=== PATIENT | female | born 1970 | race Caucasian/White ===

== ENCOUNTER 2020-03-28 15:17 | Outpatient (CLI) | payer OTHER, SELFPAY ==
[2020-03-28 16:17] LABS: SARS-CoV-2 Ag Negative (Negative)
== END 2020-03-28 15:18 | disposition home or self-care (01) ==
PROVIDERS: PCP Family Medicine; Visit Provider Family Medicine
DX: J01.80 Other acute sinusitis (principal); Z20.828 Contact with and (suspected) exposure to other viral communicable diseases
CPT/HCPCS: 87426

== ENCOUNTER 2020-05-23 13:11 | Outpatient (CLI) | payer OTHER, SELFPAY ==
--- NOTE | ~2020-05-23 | MM_ITS ---
EXAMINATION: MM screening [facility] w renetta HISTORY: Screening TECHNIQUE: Craniocaudal and mediolateral oblique 3-D tomosynthesis images were obtained and synthetic 2-D images were generated. CAD analysis was submitted and interpreted. COMPARISON: Comparison to multiple prior studies sequentially, with oldest reviewed study dated 11/14. BREAST PARENCHYMAL COMPOSITION: The breasts are extremely dense, which lowers the sensitivity of mamm ography. FINDINGS: There are focal asymmetries in the right breast on CC view, middle third. There is no evide nce of suspicious mass, calcification, or architectural distortion to suggest malignancy in the left breast. IMPRESSION: 1. Focal asymmetries of the right breast on CC view only. 2. Additional mammographic views and possible breast ultrasound are recommended. BI-RADS Category 0: Incomplete: Needs additional imaging evaluation. Reviewed, dictated and finalized at location A. 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 Focal asymmetries of the right breast on CC view only. 2. Additional mammographic views and possible breast ultrasound are recommended . BI-RADS Category 0: Incomplete: Needs additional imaging evaluation.
== END 2020-05-23 13:12 | disposition home or self-care (01) ==
LOC: CHSIMG 13:14
PROVIDERS: PCP Family Medicine; Visit Provider Family Medicine
DX: Z12.31 Encounter for screening mammogram for malignant neoplasm of breast (principal)
CPT/HCPCS: 77063; 77067

== ENCOUNTER 2020-06-21 07:42 | Outpatient (CLI) | payer OTHER, SELFPAY ==
--- NOTE | ~2020-06-21 | MM_ITS ---
EXAMINATION: MM diagnostic mammo unilat RT HISTORY: Right breast asymmetries on screening mammogram TECHNIQUE: Additional images of the right breast were performed. CAD analysis was submitted and inter preted. COMPARISON: 05/23/2020, 01/25/2019, 06/08/2017 FINDINGS: No persistent asymmetry is identified with spot compression views of the right breast. Ther e is no suspicious mass, calcification, or architectural distortion. IMPRESSION: 1. No mammographic evidence of malignancy. 2. Recommend routine screening mammography in one year. BI-RADS Category 1: Negative Reviewed, dictated and finalized at location A. 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
== END 2020-06-21 07:43 ==
PROVIDERS: PCP Family Medicine; Visit Provider Advanced Practice Midwife
DX: R92.8 Other abnormal and inconclusive findings on diagnostic imaging of breast (principal)
CPT/HCPCS: 77065

== ENCOUNTER 2020-07-15 10:41 | Outpatient (CLI) | payer OTHER, SELFPAY ==
[2020-07-15 12:13] LABS: SARS-CoV-2 RNA PCR Negative
== END 2020-07-15 10:42 | disposition home or self-care (01) ==
LOC: CHSLAB 10:43
PROVIDERS: PCP Family Medicine; Visit Provider Family Medicine
DX: J06.9 Acute upper respiratory infection, unspecified (principal); Z20.822 Contact with and (suspected) exposure to COVID-19
CPT/HCPCS: C9803; U0003; U0005

== ENCOUNTER 2020-09-24 09:55 | Outpatient (CLI) | payer OTHER, SELFPAY ==
[2020-09-24 11:31] LABS: SARS-CoV-2 RNA PCR Negative (Negative)
== END 2020-09-24 09:56 | disposition home or self-care (01) ==
LOC: CHSLAB 09:58
PROVIDERS: PCP Family Medicine; Visit Provider Family Medicine
DX: J00 Acute nasopharyngitis [common cold] (principal); Z20.822 Contact with and (suspected) exposure to COVID-19
CPT/HCPCS: C9803; U0003; U0005

== ENCOUNTER 2021-04-25 11:28 | Outpatient (CLI) | payer BC, SELFPAY ==
[2021-04-25 13:03] LABS: SARS-CoV-2 Ag Negative (Negative)
== END 2021-04-25 11:29 | disposition home or self-care (01) ==
LOC: CHSLAB 11:31
PROVIDERS: PCP Family Medicine; Visit Provider Family Medicine
DX: Z20.822 Contact with and (suspected) exposure to COVID-19 (principal)
CPT/HCPCS: 87426; C9803

== ENCOUNTER 2021-05-15 09:35 | Outpatient (CLI) | payer BC, SELFPAY ==
[2021-05-16 21:55] LABS: SARS-CoV-2 RNA PCR Positive
== END 2021-05-15 09:36 | disposition home or self-care (01) ==
LOC: CHSLAB 09:38
PROVIDERS: PCP Family Medicine; Visit Provider Family Medicine
DX: U07.1 COVID-19 (principal); J01.90 Acute sinusitis, unspecified
CPT/HCPCS: C9803; U0003; U0005

== ENCOUNTER 2021-09-10 14:32 | Outpatient (CLI) | payer BC, SELFPAY ==
--- NOTE | ~2021-09-10 | MM_ITS ---
EXAMINATION: MM screening [facility] BI w renetta HISTORY: Screening mammogram TECHNIQUE: Craniocaudal and mediolateral oblique 3-D tomosynthesis images were obtained and synthetic 2-D images were generated. CAD analysis was submitted and interpreted. COMPARISON: 06/21/2020, 05/23/2020, 01/25/2019, 06/08/2017 BREAST PARENCHYMAL COMPOSITION: The breasts are heterogeneously dense, which may obscure small masses . FINDINGS: There is no suspicious mass, calcification, or architectural distortion to suggest malignan cy in either breast. There has been no suspicious interval change. IMPRESSION: 1. No mammographic evidence of malignancy. 2. Recommend routine screening mammography in one year. BI-RADS Category 1: Negative Reviewed, dictated and finalized at location A.
== END 2021-09-10 14:33 | disposition home or self-care (01) ==
LOC: CHSIMG 14:34
PROVIDERS: PCP Family Medicine; Visit Provider Family Medicine
DX: Z12.31 Encounter for screening mammogram for malignant neoplasm of breast (principal)
CPT/HCPCS: 77063; 77067

== ENCOUNTER 2022-09-18 14:32 | Outpatient (CLI) | payer BC, SELFPAY ==
--- NOTE | ~2022-09-18 | MM_ITS ---
EXAMINATION: MM screening [facility] w renetta HISTORY: Screening mammogram TECHNIQUE: Craniocaudal and mediolateral oblique 3-D tomosynthesis images were obtained and synthetic 2-D images were generated. CAD analysis was submitted and interpreted. COMPARISON: 09/10/2021, 05/15/2020, 01/25/2019, 06/08/2017 BREAST PARENCHYMAL COMPOSITION:The breasts are extremely dense, which lowers the sensitivity of mammo graphy. FINDINGS: No suspicious mass, calcification, or architectural distortion are identified in either lani ast to suggest malignancy. There has been no suspicious interval change. IMPRESSION: No mammographic evidence of malignancy. Recommend routine screening mammography in one year. BI-RADS Category 1: Negative Reviewed, dictated and finalized at location .
== END 2022-09-18 14:33 | disposition home or self-care (01) ==
LOC: CHSIMG 14:34
PROVIDERS: PCP Family Medicine; Visit Provider Family Medicine
DX: Z12.31 Encounter for screening mammogram for malignant neoplasm of breast (principal)
CPT/HCPCS: 77063; 77067

== ENCOUNTER 2023-04-14 16:37 | Outpatient (CLI) | payer BC, SELFPAY ==
--- NOTE | ~2023-04-14 | XR_ITS ---
EXAMINATION: [id number] DATE: 04/14/2023 17:02 INDICATION: Neck pain. TECHNIQUE: 3 views of cervical spine were obtained. COMPARISON: None. FINDINGS: There is mild kyphosis of cervical spine. Vertebral body heights are normal. There is mildl y decreased disc height at C4-C5 and C5-C6. There is severe facet joint osteoarthritis at C7-T1. Ther e is mild central canal stenosis at C4-C5 and C5-C6. No prevertebral soft tissue swelling. IMPRESSION: 1. Mild cervical spondylosis. Reviewed, dictated and finalized at location E. 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
== END 2023-04-14 16:38 | disposition home or self-care (01) ==
LOC: CHSIMG 16:40
PROVIDERS: PCP Family Medicine; Visit Provider Family Medicine
DX: M54.2 Cervicalgia (principal); M43.02 Spondylolysis, cervical region
CPT/HCPCS: 72040

== ENCOUNTER 2023-05-31 13:14 | Outpatient (CLI) | payer BC, SELFPAY ==
--- NOTE | ~2023-05-31 | MR_ITS ---
EXAMINATION: MR cervical spine wo con DATE: 05/31/2023 13:48 INDICATION: Neck pain. TECHNIQUE: Magnetic resonance imaging (MRI) of the cervical spine was performed without intravenous c ontrast. COMPARISON: Cervical spine radiographs 04/14/2023 FINDINGS: There is mild cervical kyphosis. Vertebral body heights are normal. There is mildly decreas ed disc height at C4-C5 and C5-C6. The spinal cord signal intensity is normal. The following disc lev els are specifically discussed: C2-C3: The disc does not extend beyond the endplate margin. There is no uncovertebral joint osteoarth ritis. There is mild bilateral facet joint osteoarthritis. There is no neural foraminal stenosis. The re is no central canal stenosis. C3-C4: The disc does not extend beyond the endplate margin. There is no uncovertebral joint osteoarth ritis. There is mild right facet joint osteoarthritis. There is no neural foraminal stenosis. There i s no central canal stenosis. C4-C5: The disc is bulging. There is mild bilateral uncovertebral joint osteoarthritis. There is mild bilateral facet joint osteoarthritis. There is no neural foraminal stenosis. There is mild central c anal stenosis with ventral indentation of the spinal cord. C5-C6: The disc is bulging. There is mild bilateral uncovertebral joint osteoarthritis. There is mild bilateral facet joint osteoarthritis. There is no neural foraminal stenosis. There is mild central c anal stenosis with ventral indentation of the spinal cord. C6-C7: There is a central protrusion. There is mild bilateral uncovertebral joint osteoarthritis. The re is mild bilateral facet joint osteoarthritis. There is no neural foraminal stenosis. There is no c entral canal stenosis. C7-T1: The disc does not extend beyond the endplate margin. There is no uncovertebral joint osteoarth ritis. There is severe bilateral facet joint osteoarthritis. There is mild bilateral neural foraminal stenosis. There is no central canal stenosis. IMPRESSION: 1. Mild cervical spondylosis. Reviewed, dictated and finalized at location A. 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
== END 2023-05-31 13:15 ==
PROVIDERS: Visit Provider Family Medicine
DX: M47.892 Other spondylosis, cervical region (principal)
CPT/HCPCS: 72141

== ENCOUNTER 2023-12-31 13:16 | Outpatient (CLI) | payer BC, SELFPAY ==
--- NOTE | ~2023-12-31 | MM_ITS ---
EXAMINATION: MM screening [facility] w renetta HISTORY: Screening TECHNIQUE: Craniocaudal and mediolateral oblique 3-D tomosynthesis images were obtained and synthetic 2-D images were generated. CAD analysis was submitted and interpreted. COMPARISON: Comparison to multiple prior studies sequentially, with oldest reviewed study dated 05/2018. BREAST PARENCHYMAL COMPOSITION: Dense: The breasts are heterogeneously dense, which may obscure small masses FINDINGS: There is no evidence of suspicious mass, calcification, or architectural distortion to sugg est malignancy in either breast. There has been no suspicious interval change. IMPRESSION: 1. No mammographic evidence of malignancy. 2. Recommend routine screening mammography in one year. BI-RADS Category 1: Negative Reviewed, dictated and finalized at location B.
== END 2023-12-31 13:17 | disposition home or self-care (01) ==
LOC: CHSIMG 13:19
PROVIDERS: PCP Family Medicine; Visit Provider Family Medicine
DX: Z12.31 Encounter for screening mammogram for malignant neoplasm of breast (principal)
CPT/HCPCS: 77063; 77067

== ENCOUNTER 2024-10-04 08:35 | Outpatient (CLI) | payer BC, SELFPAY ==
--- NOTE | ~2024-10-04 | US_ITS ---
EXAMINATION: US retroperitoneal duplex ltd DATE: 10/05/2024 07:48 CDT INDICATION: Accelerated hypertension. TECHNIQUE: Sonographic imaging of the kidneys was performed with a 3.5 MHz transducer. Retroperitone al duplex sonogram of the renal arteries also obtained. FINDINGS: No focal flow abnormalities are seen in the renal arteries on color Doppler. The peak syst olic velocity ranges of the right and left renal arteries and aorta are 98 cm per second, 225 cm per second, and 185 cm per second, respectively. The velocities and renal to aortic ratios are abnormal m easuring 2.3 on the right and 2.0 on the left. IMPRESSION: 1. Abnormal renal arterial systolic velocities and renal artery/aortic systolic velocity ratios, con sistent with bilateral renal artery stenosis. Reviewed, dictated and finalized at location [] IMPRESSION: 1. Abnormal renal arterial systolic velocities and renal artery/aortic systoli c velocity ratios, consistent with bilateral renal artery stenosis.
--- OUTSIDE RECORDS SUMMARY | 2024-10-04 08:56 | XMS_ITS | Clinical Summary ---
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 Name Role Phone Unavailable Primary Care Provider Unavailabl e Active Problems No known active problems Social History Tobacco Use Types Packs/Day Years Used Date Smoking Tobacco: Never Assessed Comments Unknown Sex and Gender Information Value Date Recorded Sex Assigned at Not on file Legal Sex Female 4:11 PM [employer] Gender Identity Not on file Sexual Orientation Not on file Plan of Treatment Health Maintenance Due Date Last Done Comments DTAP/TDAP/TD VACCINES (1 - Tdap) 1988 HEPATITIS B VACCINES (1 of 3 - 19+ 3-dose series) 11/25 HPV/Cotest (21-29) 1990 CERVICAL CANCER SCREENING 12/22/1999 HPV/Cotest (30-65) 12/22/1999 PAP SMEAR 12/22/1999 COLORECTAL SCREENING 2014 Colorectal Cancer Screening 2014 FIT-DNA Q 3 years 2014 FIT/FOBT Q 1 year 2014 Flex Sig/CT Colonography Q 5 years 2014 BREAST CANCER SCREENING 10/07/2016 10/08/2015 ZOSTER VACCINE (1 of 2) 12/22/2019 INFLUENZA VACCINE (#1) 2023 Procedures Procedure Name Priority Date/Time Associated Diagnosis Comments MAMMO SCREEN BILAT W OR WO CAD Routine 10/08/2015 from Last 3 Months or Most Recently Relevant to Health Maintenance Results * MAMMO DIGITAL SCREEN BILAT (10/08/2015) Anatomical Region Laterality Modality Breast Bilateral Other us Abstract Provider MAMMO ORDERABLES Edited Result - Final from Last 3 Months or Most Recently Relevant to Health Maintenance
--- OUTSIDE RECORDS SUMMARY | 2024-10-04 08:56 | XMS_ITS | Data Portability ---
Author Organization [facility], [place] Address [address] [place] [address] Care Team Providers Care Car Knocker Name Role Phone KAREEM JEREZ Primary Care Provider Assessment Encounter Date Assessment Date Assessment LastModified by Organization Details LastModified Time 06/04/2021 06/04/2021 Annual gynecological exam performed. Patient will come back in a year unless there are new symptoms. Suggest Calcium with Vitamin D if not eating in diet. Patient advised to get annual flu shot. Recommend yearly physicals and preform monthly breast exams. Genetic testing is available for patients with family history of cancer. Engage in safe sexual practices, use condoms. Encouraged to have daily exercise. Avoid tobacco and illicit drugs, moderation of alcohol. If BMI greater than 25 dietary consult advised. If you have any questions please call or email. has mammogram scheudled for june 2021 refer for colonoscopy monitor bp plan mirena removal in 2023 [email or web address] Not available 06/04/2021 18:07:56 03/03/2023 03/03/2023 Annual gynecological exam performed. Patient will come back in a year unless there are new symptoms. [email or web address] Not available 03/03/2023 17:19:54 06/26/2024 06/26/2024 Annual gynecological exam performed. Patient will come back in a year unless there are new symptoms. Not available 06/26/2024 16:26:34 Plan of Treatment Reminders Order Date Submit Date Provider Last Modified By Organization Details Last Modified Time Details Appointments None recorded . Lab CBC w/ auto diff 2022 023 [facility], [address], [place], [address], 3 10:42:07 estradio l, serum 2022 023 [facility], [address], [place], [address], 3 16:46:35 TSH, serum or plasma 2022 023 [facility], [address], [place], [address], 3 16:46:35 lh + FSH, serum 2022 023 [facility], [address], [place], [address], 3 16:46:35 prolacti n, serum 2022 023 [facility], [address], [place], [address], 3 16:46:35 Referral None recorded . Procedures None recorded . Surgeries None recorded . Imaging US, pelvis 2022 023 [address], [address], [place], [address], 3 22:53:11 US, transvag inal [address], [address], [address], [place], [address], 3 22:53:11 US, pelvis, complete 2022 023 [facility] (Imaging), [address] [place], [address], 3 14:51:46 Medication Orders None recorded . Patient TargetsNo targets recorded. Patient InstructionsNo instructions recorded. Reason for Referral None Reported. Results Created Date Observation Date Name Description Value Unit Range Abnormal Flag Note LastModifiedBy Organization Detail LastModifiedTime 06/04/19 22 06/04/2021 IMAGE GUIDE D PAP AND HPV REGAR DLESS image guided Pap, HPV regardless of Pap result SEE RESULT S BELOW CASE REPOR T: Cytol ogy Gynec ologi louis Repor t Case: [id number] Autho sofia robe Provi kashif: Aura Lee, ESTER Saucedo cted: 06/04 1822 Order ing Locat ion: [place] [facility] Recei bekah: 06/05 0132 First Scree n: Abelino Echols, CT Speci men: Pat cooney Pap - Image d, Cervi x STATE MENT OF ADEQU ACY: Satis facto ry for evalu ation Trans forma tion zone compo nent prese nt FINAL DIAGN OSIS: Negat bryce for Intra epith elial Linda mixon or Dora costa (NIL) . Elect andry vila leobardo d by Abelino Echols, CT on 2021 at 2:59 PM ----- ----- ----- ----- ----- ----- ----- ----- ----- ----- ----- ----- ----- ----- ----- ----- ----- ---- HPV RESUL TS: HPV mRNA E6/E7 : No HPV mRNA Detec daphne NOTE: This high risk HPV mRNA assay detec ts fourt een high- risk HPV types (16, 18, 31, 33, 35, 39, 45, 51, 52, 56, 58, 59, 66, 68) witho ut diffe renti ation . COMME NT: Note: This speci men was revie wed by a Cytot echno logis t and/o r Patho logis t (as indic ated in this repor t) after evalu ation using the Thinp rep Imagi ng Syste m. [facility]: Menst rual Statu s: LMP (if appli cable ): Clini louis Histo ry/Pr eviou s Pap: Type of Neopl katina (if appli cable ): Signi fican t Clini louis Findi ngs: Other Histo ry: Hormo simon (if appli cable ): PAP EDUCA MAC L NOTE: The Pap Test is a scree ivet test with an inher ent false negat bryce rate. Liqui d-bas ed sampl ing may decre ase, but will not elimi kb, false negat bryce resul ts. A negat bryce resul t does not precl ude the prese nce and/o r devel opmen t of disea se, since the prese nce of abnor mal cells in the sampl e depen ds on the locat ion of the lesio n and sampl ing techn ique. Yossi nued regul ar scree ivet is the best metho d of cance r preve ntion . If repor daphne cytol ogic findi ng do not corre late with physi louis and/o r histo rical findi ngs, furth er inves tigat ion is recom niels d, as clini natalya warra nted. Not Available [facility] (Lab) [address], [place], [address], 06/10/2021 16:02:28 09/03/19 23 09/02/2022 CT/GC AND TRICH OMONA S VAGIN JONATAN (RRNA ), SWAB CT/GC and trichomonas vaginalis (rrna), swab CANCEL LED Wrong Test Order ed Not Available [facility] (Lab) [address], [place], [address], 09/03/2022 08:13:53 09/03/19 23 09/02/2022 CT/GC AND TRICH OMONA S VAGIN JONATAN (RRNA ), URINE chlamydia trachomatis, PCR Negati ve negati ve Not Available [facility] (Lab) [address] [facility], [place], [address], 09/03/2022 13:59:09 09/03/19 23 09/02/2022 CT/GC AND TRICH OMONA S VAGIN JONATAN (RRNA ), URINE neisseria gonorrhoeae, PCR Negati ve negati ve Not Available [facility] (Lab) [address] [place], [address], 09/03/2022 13:59:09 09/03/19 23 09/02/2022 CT/GC AND TRICH OMONA S VAGIN JONATAN (RRNA ), URINE trichomonas vaginalis ribosomal RNA (rrna) Negati ve negati ve Not Available [facility] (Lab) [address] [facility], [place], [address], 09/03/2022 13:59:09 06/27/19 25 06/26/2024 IMAGE GUIDE D PAP AND HPV REGAR DLESS image guided Pap, HPV regardless of Pap result SEE RESULT S BELOW CASE REPOR T: Cytol ogy Gynec ologi louis Repor t Case: [id number] Autho sofia nagel Provi kashif: Ubaldo Salas MD Colle cted: 06/26 1625 Order ing Locat ion: [place] [facility] Recei bekah: 06/27 0707 First Pat n: Linden Jay am, CT Speci men: Chelseyedna cooney Pap - Image d, Cervi x STATE MENT OF ADEQU ACY: Satis facto ry for evalu ation Trans forma tion zone compo nent prese nt ----- ----- ----- ----- ----- ----- ----- ----- ----- ----- ----- ----- ----- ----- ----- ----- ----- ---- FINAL DIAGN OSIS: Negat bryce for Intra epith elial Linda mixon or Dora costa (NIL) . Elect andry booth d by GM Trinh am on 025 at 0836 RECORD LABEL INTERN ----- ----- ----- ----- ----- ----- ----- ----- ----- ----- ----- ----- ----- ----- ----- ----- ----- ---- HPV RESUL TS: HPV mRNA E6/E7 : No HPV mRNA Detec daphne NOTE: This high risk HPV mRNA assay detec ts fourt een high- risk HPV types (16, 18, 31, 33, 35, 39, 45, 51, 52, 56, 58, 59, 66, 68) witho ut diffe renti ation . COMME NT: This speci men was revie wed by a Cytot echno logis t and/o r Patho logis t (as indic ated in this repor t) after evalu ation using the Thinp rep Imagi ng Syste m. [facility]: Menst rual Statu s: LMP (if appli cable ): Clini louis Histo ry/Pr eviou s Pap: Type of Neopl katina (if appli cable ): Signi fican t Clini louis Findi ngs: Other Histo ry: Hormo simon (if appli cable ): PAP EDUCA MAC L NOTE: The Pap Test is a scree ivet test with an inher ent false negat bryce rate. Liqui d-bas ed sampl ing may decre ase, but will not elimi kb, false negat bryce resul ts. A negat bryce resul t does not precl ude the prese nce and/o r devel opmen t of disea se, since the prese nce of abnor mal cells in the sampl e depen ds on the locat ion of the lesio n and sampl ing techn ique. Yossi nued regul ar scree ivet is the best metho d of cance r preve ntion . If repor daphne cytol ogic findi ng do not corre late with physi louis and/o r histo rical findi ngs, furth er inves tigat ion is recom niels d, as clini natalya dickens nted. Not Available [facility] (Lab) [address], [place], [address], 06/29/2024 09:41:54 09/17/19 23 09/16/2022 US, pelvi s No observ ation record ed. [facility] [address], [place], [address], 09/16/2022 18:28:36 09/17/19 23 09/16/2022 US, trans vagin al No observ ation record ed. [facility] [address], [place], [address], 09/16/2022 18:28:49 09/17/19 23 09/16/2022 US, pelvi s No observ ation record ed. [email or web address], [place], [address], 09/24/2022 12:20:03 Result Notes None recorded. Problems Name Problem SNOMED Code Status Onset Date Resolution Date Notes Provider Name and Address Organization Details Recorded Time Screenin g for malignan t neoplasm of cervix Completed 201106/04/2021 Screenin g for malignan t neoplasm s of the cervix;R ecorded Elsewher e: No Locat ion: [facility] S ource: [employer] baltazar: N Aditya ce ID: [id number] Nawaf lable Time: 10:00:00 AM Brenda Domingo [facility] 2 16:29:28 Screenin g for malignan t neoplasm of rectum Completed 201806/04/2021 Encounte r for screenin g for malignan t neoplasm of rectum;R ecorded Elsewher e: No Locat ion: [facility] S ource: [employer] baltazar: N Practi ce ID: 0001 Nawaf lable Time: 01:30:00 PM Brenda reyes [facility] 2 16:29:30 Migraine [id number] Completed 201706/04/2021 Migraine ;Recorde d Elsewher e: No Locat ion: [facility] S ource: [facility] baltazar: N Carlosti ce ID: 0001 Nawaf lable Time: 03:15:00 PM Brenda Sentz eric, [facility] [address] 16:29:[address] Concept Completed 201506/04/2021 Encntr for general adult medical exam w/o abnormal findings ;Recorde d Elsewher e: No Locat ion: [facility] S ource: [facility] baltazar: N Carlosti ce ID: 0001 Nawaf lable Time: 02:30:00 PM Brenda Domingo [facility], [facility] 2 16:29:34 Speciali zed medical examinat ion Completed 201106/04/2021 Gynecolo gical Examinat ion;Andi rded Elsewher e: No Locat ion: [facility] S ource: [facility] baltazar: N Carlosti ce ID: 0001 Nawaf lable Time: 10:00:00 AM Brenda Domingo eric, [facility] 2 16:29:37 Removal of intraute rine device Completed 201606/04/2021 Encounte r for removal of intraute rine contrace ptive device;R ecorded Elsewher e: No Locat ion: [facility] S ource: [facility] baltazar: N Carlosti ce ID: 0001 Nawaf lable Time: 10:45:00 AM Brenda Sentz eric, [facility] 2 16:29:26 Pregnanc y test negative [id number] Completed 201606/04/2021 Encounte r for pregnanc y test, result negative ;Recorde d Elsewher e: No Locat ion: [facility]: N Carlosti ce ID: 0001 Nawaf lable Time: 09:15:00 AM Brenda Domingo [facility] [address] 16:29:[address] Concept Completed 201506/04/2021 Encntr for metal neutralizer exam (general ) (routine ) w/o abn findings ;Recorde d Elsewher e: No Locat ion: [facility] S ource: [employer] baltazar: N Aditya ce ID: 0001 Nawaf lable Time: 02:30:00 PM Brenda Domingo [facility] 2 16:29:36 Clinical finding Completed 201606/04/2021 Presence of (intraut erine) contrace ptive device;R ecorded Elsewher e: No Locat ion: [facility] S ource: [employer] [employer] baltazar: N Carlosfarhad ce ID: 0001 Nawaf lable Time: 09:15:00 AM Brenda Domingo [facility] 2 16:29:14 Insertio n of intraute rine contrace ptive device Completed 201606/04/2021 Encounte r for insertio n of intraute rine contrace ptive device;R ecorded Elsewher e: No Locat ion: [facility] S ource: [facility] [employer] baltazar: N Carlosfarhad ce ID: 0001 Nawaf lable Time: 09:15:00 AM Brenda Domingo [facility] 2 16:29:21 Disorder of breast [id number] Completed 201506/04/2021 Disorder of breast, unspecif ied;Andi rded Elsewher e: No Locat ion: [facility] S ource: [employer] [employer] baltazar: N Carlosfarhad ce ID: 0001 Nawaf lable Time: 02:30:00 PM Brenda Domingo [facility] 2 16:29:19 Body mass index 30+ - obesity [id number] Completed 201806/04/2021 Body mass index (BMI) 30.0-30. 9, adult;Re corded Elsewher e: No Locat ion: [facility] S ource: [employer] baltazar: N Practi ce ID: 0001 Nawaf lable Time: 01:30:00 PM Brenda Domingo [facility] 2 16:29:12 Contrace ptive sheath status [id number] Completed 201606/04/2021 IUD follow up;Recor ded Elsewher e: No Locat ion: [facility] S ource: [employer] [employer] baltazar: N Practi ce ID: 0001 Nawaf lable Time: 03:00:00 PM Brenda Domingo [facility] 2 16:29:17 Sinusiti s [id number] Completed 201806/04/2021 Sinusiti s;Record ed Elsewher e: No Locat ion: [facility] S ource: [employer] [employer] baltazar: N Practi ce ID: 0001 Nawaf lable Time: 01:30:00 PM Brenda Domingo [facility] 2 16:29:32 Problem Notes None recorded. Procedures Surgical History Date Name Laterality Status Provider Name and Address Organization Details Recorded Time 10/14/19 23 Date of Last Colonoscopy completed [facility] 09/28/2024 12:21:25 08/20/19 23 completed [facility] 09/28/2024 12:21:45 06/04/19 22 Date of Last Pap Smear completed Brenda Domingo [facility] 06/04/2021 16:35:10 06/21/19 21 Date of Last Mammogram completed [facility] 09/28/2024 12:21:45 Imaging Results None recorded. Procedure Notes None recorded. Medical Equipment None Reported. Allergies Allergen ID Allergen Name Allergen Category Reaction Reaction Severity Criticality Documentation Date Start Date Code Code System Note Provider Name and Address Organization Details Recorded Time 88478 Levaquin medicatio n Not available Not available Not available 09/28/2024 48531 2 RxNorm SY Giraldo null, [facility] 5 12:21:45 606 levofloxa jersey medicatio n Not available Not available Not available 09/08/2019 33283 RxNorm Brenda Domingo [facility], [facility] 0 12:09:55 607 Product containin g penicilli n (product) medicatio n Not available Not available Not available 09/08/2019 00699 8001 SNOMED Brenda Domingo [facility], [facility] 0 12:10:06 Medications Name Sig Start Date Stop Date Status Note LastModified by Organization Details LastModified Time losartan 50 mg tablet Take 1 tablet every day by oral route. active Not Available Not Available No t Available Mirena 21 mcg/24 hr (up to 8 years) 52 mg intrauter ine device Take by intraute rine route. active mirena IUD inserted 7 Not Available Not Available Not Available nystatin 100,000 unit/mL oral suspensio n SHAKE LIQUID AND TAKE 5 ML BY MOUTH FOUR TIMES DAILY active Not Available Not Available No t Available prednison e 10 mg tablet 06/04 completed Not Available Not Available Not Available divalproe x 250 mg tablet,de layed release 06/04 completed Not Available Not Available Not Available azithromy jersey 250 mg tablet TK 2 TS PO ON DAY 1, THEN TK 1 T PO D FOR 4 DAYS active Not Available Not Available No t Available fluconazo le 150 mg tablet 06/04 completed Not Available Not Available Not Available sumatript an 100 mg tablet TAKE 1 TABLET BY MOUTH AT BEGINNIN G OF HEADACHE . MAY REPEAT AFTER 2 HOURS. NO MORE THAN 2 TABLETS IN 24 HOURS active Not Available Not Available No t Available prednison e 20 mg tablet active Not Available Not Available Not Available Zoloft 20 mg/mL oral concentra te take 2.5 millilit er by oral route every day and mix with 4 oz. (1/2 cup) of water, juancarlos maxwell, lemon/li me soda, lemonade or orange juice ONLY 03/02 completed Prescrib ed Elsewher e: Yes Loca tion: [facility]az[facility] M odify By: lbillhar tz Encou nter DateTime : 04/01/20 12 10:00:00 AM Not Available Not Available Not Available sulfameth oxazole 800 mg-trimet hoprim 160 mg tablet TAKE 1 TABLET BY MOUTH EVERY 12 HOURS FOR 10 DAYS active Not Available Not Available No t Available amitripty line 50 mg tablet TAKE 1 TABLET BY MOUTH EVERY NIGHT 06/04 completed Not Available Not Available Not Available amitripty line 25 mg tablet TAKE 1 TABLET BY MOUTH EVERY NIGHT active Not Available Not Available No t Available triamcino lone acetonide 0.1 % dental paste APPLY A SMALL AMOUNT TO THE AFFECTED AREA OF MOUTH TWO TO THREE TIMES DAILY AFTER MEALS active Not Available Not Available No t Available gentamici n 0.3 % eye drops active Not Available Not Available No t Available fluvoxami ne 100 mg tablet active Not Available Not Available Not Available doxycycli ne monohydra te 100 mg capsule 06/04 completed Not Available Not Available Not Available esomepraz ole magnesium 40 mg capsule,d elayed release TAKE 1 CAPSULE BY MOUTH TWICE DAILY active Not Available Not Available No t Available methylpre dnisolone 4 mg tablets in a dose pack FOLLOW PACKAGE DIRECTIO NS active Not Available Not Available No t Available amitripty line 06/04 completed Not Available Not Available Not Available hydrochlo rothiazid e 12.5 mg tablet active Not Available Not Available Not Available Emgality Pen 120 mg/mL subcutane ous pen injector ADMINIST ER 1 ML UNDER THE SKIN EVERY 30 DAYS active Not Available Not Available No t Available ID NOW COVID-19 Test Kit TEST DIRECTED TODAY 06/26 completed Not Available Not Available Not Available Vitals Date Recorded Body height Body mass index (BMI) Body weight Systolic blood pressure Diastolic blood pressure Provider Name and Address Organization Details Last Updated DateTime 06/04/2021 170.18 cm 31.6 kg/m2 81421.66 g 160 mm[Hg] 92 mm[Hg] Brenda Domingo [facility] 2 16:28:19 Date Recorded Body height Body mass index (BMI) Body weight Systolic blood pressure Diastolic blood pressure Provider Name and Address Organization Details Last Updated DateTime 06/26/2024 170.18 cm 30.9 kg/m2 49943.7 g 149 mm[Hg] 84 mm[Hg] Lucero Simmons [facility] 5 16:29:00 Date Recorded Body height Body mass index (BMI) Body weight Systolic blood pressure Diastolic blood pressure Provider Name and Address Organization Details Last Updated DateTime 09/02/2022 170.18 cm 30.7 kg/m2 72578.1 g 131 mm[Hg] 83 mm[Hg] Anaid Contreras [facility] 3 16:28:45 Date Recorded Body height Body mass index (BMI) Body weight Systolic blood pressure Diastolic blood pressure Provider Name and Address Organization Details Last Updated DateTime 03/03/2023 170.18 cm 29.9 kg/m2 46973.86 g 144 mm[Hg] 87 mm[Hg] Shruthi Lee [facility] 3 17:21:58 Social History Question Answer Notes LastModified by Organizat ion Details LastModified Time Tobacco Smoking Status Never Smoker Christina Harris [facility] 03/03/2023 17:02:57 Are You Blind Or Do You Have Difficulty Seeing? No Information n ot available 09/02/2022 What Is Your Level Of Caffeine Consumption? Occasional Information not available 09/02/2022 In The 14 Days Before Symptom Onset, Have You Had Close Contact With A Laboratory-confirm ed COVID-19 While That Case Was Ill? No Information n ot available 09/02/2022 In The 14 Days Before Symptom Onset, Have You Had Close Contact With A Person Who Is Under Investigation For COVID-19 While That Person Was Ill? No Information not available 09/02/2022 Have You Been To An Area Known To Be High Risk For COVID-19? No Information not available 09/02/2022 Are You Deaf Or Do You Have Serious Difficulty Hearing? No Information not available 09/02/2022 Which Illicit Or Recreational Drugs Have You Used? None Information not available 03/03/2023 What Is The Highest Grade Or Level Of School You Have Completed Or The Highest Degree You Have Received? [id number] Information not available 09/02/2022 Are There Any Guns Present In Your Home? No Information not available 09/02/2022 What Was The Date Of Your Most Recent Tobacco Screening? 09/08/2019 [email or web address] Information not available 03/03/2023 Do You Use Your Seat Belt Or Car Seat Routinely? Yes Information not available 09/02/2022 Do You Have Smoke And Carbon Monoxide Detectors In Your Home? Yes Information not available 09/02/2022 How Much Tobacco Do You Smoke? No [email or web address] Information not available 09/08/2019 Do You Use Sunscreen Routinely? Yes Information not available 09/02/2022 Have You Used IV Drugs? No Information not available 09/02/2022 Sex: Unknown Functional Status Question Answer Note LastModified by Organizat ion Details LastModified Time Do you use any illicit or recreational drugs? No Information not available 09/02/2022 What is your level of alcohol consumption? None Information not available 09/02/2022 Do you or have you ever used smokeless tobacco? 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 Never used electronic cigarettes [email or web address] Information not available 03/03/2023 What is your exercise level? Occasional [email or web address] Information not available 09/08/2019 Mental Status None recorded. Family History Relationship Description Onset Age of this Age Resolved Age Notes LastModified by Organization Details LastModified Time Maternal Aunt Malignant tumor of breast 55 [email or web address] Not available 06/2024 16:14:46 Maternal Aunt Malignant tumor of breast Not available 2022 16:28:50 Sister Abnormal cervical Papanicolaou smear [email or web address] Not available 06/2024 16:14:46 Medical History Condition Response Allergies (Food, seasonal, environmental ) N Other Y Blood Transfusion N Drug/Latex Allergies/Reactions N Breast Cancer Y Dermatologic Disorders N Lung Disease N Defects or Inherited Disease N Breast Problem N Gestational Diabetes N Hematologic disorders N Anesthesia Complications N History of STI N Deep Vein Thrombosis N Polycystic ovary syndrome N Anxiety Disorder Y Autoimmune disease N Arthritis N Infertility N Polyps N Acid Reflux (GERD) N History of abnormal pap N Cancer N Stroke N Varicosities N Neurologic/Epilepsy N Endometriosis N High Cholesterol N Headaches Y Fibromyalgia N Kidney Disease N Kidney or Bladder Problems N Thyroid Problems N GI Problems N Eating Disorder N Anemia Y Art (IVF or FET) N Psychiatric Illness N Ovarian Cancer N Diabetes N Pulmonary (TB, Asthma) N Hepatitis/Liver Disease N No Past Medical History N Eczema N Urinary Tract Infection N Abuse/Domestic Violence N Asthma N Trauma/Violence N Depression/ depression Y Pre-Eclampsia N Hypertension N Osteoporosis N Thrombophilias N Gynecological History Statement/Question Response Abnormal Pap N Date of Last Mammogram 06/21/2020 Date of LMP 04/30/2024 N On BCP's at Conception? N STIs/STDs N Was last menstrual period normal Y HPV Vaccine Y Duration of Flow (days) 3 Current Control Method IUD Age at First Child 24 Date of Last Colonoscopy 10/13/2022 Frequency of Cycle (Q days) 28 Most Recent Bone Density Sexually Active? Y Age of first menstrual cycle 15 Date of Last Pap Smear 06/04/2021 Sexual Problems? N LMP Approximate 08/19/2022 N Obstetrics History GPAL:G 4 P 3 0 1 3 Type Value Full Term 3 Spontaneous 1 Living 3 Total 4 Past Encounters Encounter ID Performer Location Encounter Start Date Encounter Closed Date Diagnosis/Indication Diagnosis SNOMED-CT Code Diagnosis ICD10 Code Diagnosis Note [id number] Aura Head CNM [place] [address],[facility] [place] [address] 09/08/2019 11:39:16 09/08/2019 13:12:13 Menstrual migraine 75737596 G43.829 [id number] Aura Head CNM [place] [address],[place] [address] 02/09/2020 16:10:20 02/09/2020 17:11:25 Gynecologic examination [id number] Z01.419 [id number] Aura Head CNM [place] [address],[facility] [place] [address] 06/04/2021 16:05:44 06/04/2021 18:15:38 Gynecologic examination [id number] Z01.419 [id number] Alyse KashmirtheodoreHEIDI [place] [address],[place] [address] 09/02/2022 16:16:17 09/04/2022 15:19:59 Abnormal uterine bleeding [id number] 9100 N93.9 Discussed Mirena FDA approved 8 years for contracept ion, 5 years for management of heavy bleedingwe agreed to update TVUS and labsSTI testing donediscus sed options of IUD removal/re insertion pending normal imagingwil l reach out with results and discuss next stepspreca utions discussed Time spent in visit is a total of 25 mins with at least 50% of visit consisting of counseling and review of plan of care. Contracept ion care management 928523660 Z30.9 Venereal d isease screening 456996796 Z11.3 [id number] Jamie Bates MD [place] [address],[place] [address] 09/16/2022 16:42:18 09/16/2022 17:38:13 Abnormal uterine bleeding [id number] 9100 N93.9 [id number] CATHY TROY MD [place] [address],[place] [address] 03/03/2023 17:02:28 03/04/2023 12:56:15 Gynecologic examination [id number] Z01.419 Well woman care- Cervical cancer screening: Pap smear not indicated (next 05/2026)- Breast cancer screening: mammogram ordered- Colon cancer screening: completed- STD testing: declined- hereditary cancer screening: does not qualify for testing- contracept ion: Mirena, placed 2016 [id number] CATHY TROY MD [place] [address],[place] [address] 06/26/2024 16:14:41 06/29/2024 09:36:19 Gynecologic examination 55377813 Z01.419 Z11.51 Well woman care- Cervical cancer screening: Pap smear collected, will follow up on results as available- Breast cancer screening: mammogram completed- Colon cancer screening: completed- STD testing: declined- hereditary cancer screening: does not qualify for testing- contracept ion: Mirena, due for removal 2024;consi dering replacemen t for MHT, will discuss estrogen therapy with neurologis t prior to removal of IUD Health Concerns Section Related Observation LastModified by Organization Detai ls LastModified Time None Recorded Concern Status LastModified by Organization Details LastModified Time None Recorded Advance Directives Directive None Recorded Payers Encounter Date Sequence Insurance Name Policy Number Policy Van Covered Member ID Van Member ID Guarantor Name 06/04/2021 1 [employer] [id number] Driss Parmentier [id number] Heather Parmentier 09/02/2022 1 [employer] [id number] Driss Parmentier [id number] Heather Parmentier 09/16/2022 1 [place] [id number] Driss Parmentier [id number] Heather Parmentier 03/03/2023 1 [place] [id number] Driss Parmentier [id number] Heather Parmentier 06/26/2024 1 [place] [id number] Driss Parmentier [id number] 52 [facility] Notes Date Note Type Note Provider Name and Address Organization Details Recorded Time 06/04/2021 text/html Annual GYNReport ed bypatient.Menstrual cycle:no cycle with mirena Breast:No breast pain; No breast lump; No nipple discharge Current Contraception:Intra uterine device (iud) Menopausal Symptoms:occ hot flashes Psychological symptoms:No depression; No anxiety; No PMDD Preventive measures:Encourage self breast examination; Encourage regular exercise; Encourage no tobacco use; Encourage regular mammograms starting age 39Notes:pt would like pap this year, family all had covid, son maybe playing baseball next year in college, stressful year, did not get colonoscopy last year but would like referral Aura Head CNM [address], [place], [address], [place] [facility] 06/04/2021 18:09:51 09/02/2022 text/html 51yopresents for evaluation of irregular periods/spotting with Mirena IUDIUD inserted - 05/19/2016normal, light monthly periods until the last 4-5 monthsperiods have become slightly heavier/longer over the last few months, some IMBSA with steady partnerneg vaginal symptomsneg urinary symptomsneg pelvic painneg n/v/f HEIDI Marroquin [address], [place], [address], [facility] 09/03/2022 17:33:59 03/03/2023 text/html Presents today f or her annual well-woman exam. Denies abnormal vaginal discharge. She is sexually active and denies dyspareunia. She is using Mirena IUD for contraception, and she states that she is satisfied with this method. Does have some intermittent spotting which is not bothersome to her. She has not noticed any changes or masses in her breasts. CATHY TORY MD [address], [place], [address], [facility] 03/04/2023 11:55:53 06/26/2024 text/html Presents today f or her annual well-woman exam. Denies abnormal vaginal discharge. She is sexually active and denies dyspareunia. She is using Mirena IUD for contraception, and she states that she is satisfied with this method. She has not noticed any changes or masses in her breasts. Very light periods with Mirena. IUD due for removal, unsure if she would like replacement. Having some menopausal symptoms, has not tried any symptomatic management. On monthly injectable for migraines with aura. CATHY TROY MD [address], [place], [address], [facility] 06/28/2024 23:59:17 OBGyn Episode Ob Episode Information Episode Created Date Number of Fetuses Patient Bloodtype Patient rh Status Prepregnancy Weight lbs Domestic Partner Domestic Partner Phone Father Name Clinical Assistant Professor Status 09/08/19 20 1 CLOSED Fetus Data First Name Last Name Admitted to NICU Weight (g) Sex Living Outcome Pediatric Complications Fetus ID Race Codes Race Delivery Type 3175.14 4 F Full Term 1486 Vaginal Delivery Troy Calculation Initial Troy Date Initial Exam Date Initial Exam Provider Initial Ultrasound Date Last Menstrual Period Date Ultra Sound Weeks Gestation 0 Eighteen To Twenty Week Troy Update Ultra Sound Date Fundal Height At Umbil Quickening Date Ultra Sound Latest Weeks Gestation Final Troy Confirmed By Final Troy Confirmed Date Final Troy Date Ultra Sound Latest Days Gestation 0 0 Menstrual History Last Menstrual Date Menses Monthly On Bcp Conception Prior Menses Frequency Hcg Plus Date Menarche Onset Age Delivery Information Delivery Date Delivery Type Labor Anesthesia Weeks Gestation Incision Type Labor Labor Length Hrs Delivered By Post Complications Tubal Sterilization Discharge Date Comments 8 39 Discharge Information Feeding Method Contraceptive Method Maternal HG B and HCT Levels Ob Episode Information Episode Created Date Number of Fetuses Patient Bloodtype Patient rh Status Prepregnancy Weight lbs Domestic Partner Domestic Partner Phone Father Name Clinical Assistant Professor Status 09/08/19 20 1 CLOSED Fetus Data First Name Last Name Admitted to NICU Weight (g) Sex Living Outcome Pediatric Complications Fetus ID Race Codes Race Delivery Type 4082.32 8 M Full Term 1487 Vaginal Delivery Troy Calculation Initial Troy Date Initial Exam Date Initial Exam Provider Initial Ultrasound Date Last Menstrual Period Date Ultra Sound Weeks Gestation 0 Eighteen To Twenty Week Troy Update Ultra Sound Date Fundal Height At Umbil Quickening Date Ultra Sound Latest Weeks Gestation Final Troy Confirmed By Final Troy Confirmed Date Final Troy Date Ultra Sound Latest Days Gestation 0 0 Menstrual History Last Menstrual Date Menses Monthly On Bcp Conception Prior Menses Frequency Hcg Plus Date Menarche Onset Age Delivery Information Delivery Date Delivery Type Labor Anesthesia Weeks Gestation Incision Type Labor Labor Length Hrs Delivered By Post Complications Tubal Sterilization Discharge Date Comments 3 39 Discharge Information Feeding Method Contraceptive Method Maternal HG B and HCT Levels Ob Episode Information Episode Created Date Number of Fetuses Patient Bloodtype Patient rh Status Prepregnancy Weight lbs Domestic Partner Domestic Partner Phone Father Name Clinical Assistant Professor Status 09/08/19 20 1 CLOSED Fetus Data First Name Last Name Admitted to NICU Weight (g) Sex Living Outcome Pediatric Complications Fetus ID Race Codes Race Delivery Type 3175.14 4 M Full Term 1485 Vaginal Delivery Troy Calculation Initial Troy Date Initial Exam Date Initial Exam Provider Initial Ultrasound Date Last Menstrual Period Date Ultra Sound Weeks Gestation 0 Eighteen To Twenty Week Troy Update Ultra Sound Date Fundal Height At Umbil Quickening Date Ultra Sound Latest Weeks Gestation Final Troy Confirmed By Final Troy Confirmed Date Final Troy Date Ultra Sound Latest Days Gestation 0 0 Menstrual History Last Menstrual Date Menses Monthly On Bcp Conception Prior Menses Frequency Hcg Plus Date Menarche Onset Age Delivery Information Delivery Date Delivery Type Labor Anesthesia Weeks Gestation Incision Type Labor Labor Length Hrs Delivered By Post Complications Tubal Sterilization Discharge Date Comments 6 39 Discharge Information Feeding Method Contraceptive Method Maternal HG B and HCT Levels Ob Episode Information Episode Created Date Number of Fetuses Patient Bloodtype Patient rh Status Prepregnancy Weight lbs Domestic Partner Domestic Partner Phone Father Name Clinical Assistant Professor Status 09/08/19 20 1 CLOSED Fetus Data First Name Last Name Admitted to NICU Weight (g) Sex Living Outcome Pediatric Complications Fetus ID Race Codes Race Delivery Type , Spontane ous 1484 Troy Calculation Initial Troy Date Initial Exam Date Initial Exam Provider Initial Ultrasound Date Last Menstrual Period Date Ultra Sound Weeks Gestation 0 Eighteen To Twenty Week Troy Update Ultra Sound Date Fundal Height At Umbil Quickening Date Ultra Sound Latest Weeks Gestation Final Troy Confirmed By Final Troy Confirmed Date Final Troy Date Ultra Sound Latest Days Gestation 0 0 Menstrual History Last Menstrual Date Menses Monthly On Bcp Conception Prior Menses Frequency Hcg Plus Date Menarche Onset Age Delivery Information Delivery Date Delivery Type Labor Anesthesia Weeks Gestation Incision Type Labor Labor Length Hrs Delivered By Post Complications Tubal Sterilization Discharge Date Comments 6 1995 miscarria ge Discharge Information Feeding Method Contraceptive Method Maternal HG B and HCT Levels
== END 2024-10-04 08:36 | disposition home or self-care (01) ==
LOC: CHSIMG 08:36
PROVIDERS: PCP Family Medicine; Visit Provider Family Medicine
DX: I10 Essential (primary) hypertension (principal)
CPT/HCPCS: 93976

== ENCOUNTER 2025-01-03 14:52 | Outpatient (CLI) | payer BC, SELFPAY ==
--- NOTE | ~2025-01-03 | XR_ITS ---
EXAMINATION: XR shoulder LT min 2V, 01/03/2025 15:00 CDT HISTORY: LEFT SHOULDER PAIN COMPARISON: No comparisons available. Findings: No acute fracture or malalignment. No significant degenerative changes. Soft tissues unremarkable. Impression: No acute fracture or malalignment. Reviewed, dictated and finalized at location A. Impression: No acute fracture or malalignment.
--- NOTE | ~2025-01-03 | XR_ITS ---
XR cervical spine 4-5V Indication: LEFT SHOULDER PAIN Comparison: None Findings: The vertebral heights are intact. No fracture or subluxation. The disc heights are intact. Soft tissues unremarkable Impression: No acute abnormality. Reviewed, dictated and finalized at location A. Impression: No acute abnormality.
--- OUTSIDE RECORDS SUMMARY | 2025-01-03 15:24 | XMS_ITS | Encounter Summary ---
Author Organization [facility] Address [address] [place] [address] Phone Care Team Providers Care Horizontal Drill Operator Name Role Phone Agustín Crenshaw MD Primary Care Provider [phone] Aura Head APRN, CN Unavailable [phone] Wilder James MD Unavailable [phone] Reason for Visit * Reason Comments Medication Refill Encounter Details Date Type Department Care Team (Late Contact Info) Description 08/15/2021 Refill [facility] Neurology [facility] [address] [place] [address] Tabitha Rosenthal, MEDICAL ASSISTANT PER DIEM, ASSURANCE ANALYST [address] [place] [address] Medication Refill Social History Tobacco Use Types Packs/Day Years Used Date Smoking Tobacco: Never Smokeless Tobacco: Never Alcohol Use Standard Drinks/Week Comments Not Currently 0 (1 standard drink = 0.6 oz pur e alcohol) Comments Unknown Sex and Gender Information Value Date Recorded Sex Assigned at Not on file Legal Sex Female 11:08 PM CDT Gender Identity Not on file Sexual Orientation Not on file documented as of this encounter Plan of Treatment Upcoming Encounters Date Type Department Care Team (Late Contact Info) Description 02/05/2025 10:00 AM CDT Telemedicine [facility] Neurology [facility] [address] [place] [address] Tabitha Rosenthal APRN, ASSURANCE ANALYST [address] [place] [address] documented as of this encounter Visit Diagnoses Diagnosis Intractable migraine with aura without status migrainosus Migraine with aura, with intractable migraine, so stated, without mention of status migrainosus documented in this encounter Care Teams Horizontal Drill Operator Relationship Specialty Start Date End Date Agustín Crenshaw MD [address] [place] [address] PCP - General Pediatrics 10/17/19 Aura Head APRN, CNM [address] [place] [address] Certified Nurse Agricultural Aircraft Pilot 02/15/20 Wilder James MD [address] [place] [address] Consulting Physician Neurology 02/03/23 documented as of this encounter
--- OUTSIDE RECORDS SUMMARY | 2025-01-03 15:24 | XMS_ITS | Encounter Summary ---
Author Organization [facility] Address [address] [place] [address] Phone Care Team Providers Care Foreman/Pile Driving And Erection Name Role Phone Agustín Crenshaw MD Primary Care Provider Aura Head APRN, CN Unavailable [phone] Wilder James MD Unavailable [phone] Reason for Visit * Reason Comments Medication Refill Encounter Details Date Type Department Care Team (Late Contact Info) Description 12/17/2020 Refill [facility] Neurology [facility] [address] [place] [address] Tabitha Rosenthal, SHIFT ENGINEER, CUSTOMER CONTACT SPECIALIST [address] [place] [address] Medication Refill Social History Tobacco Use Types [...] Info) Description 02/05/2025 10:00 AM CDT Telemedicine [facility] Neurology [facility] [address] [place] [address] Tabitha Rosenthal APRN, CUSTOMER CONTACT SPECIALIST [address] [place] [address] documented as of this encounter Visit Diagnoses Diagnosis Intractable migraine with aura without status migrainosus Migraine with aura, with intractable migraine, so stated, without mention of status migrainosus documented in this encounter Care Teams Foreman/Pile Driving And Erection Relationship Specialty Start Date End Date Agustín Crenshaw MD [address] [place] [address] PCP - General Pediatrics 10/17/19 Aura Head APRN, CNM [address] [place] [address] Certified Nurse Plastics Engineering Teacher 02/15/20 Wilder James MD [address] [place] [address] Consulting Physician Neurology 02/03/23 documented as of this encounter
--- OUTSIDE RECORDS SUMMARY | 2025-01-03 15:24 | XMS_ITS | Encounter Summary ---
Author Organization [facility] Address [address] [place] [address] Phone Care Team Providers Care Ripsawyer Name Role Phone Agustín Crenshaw MD Primary Care Provider [phone] Aura Head APRN, CNM Unavailable [phone] Wilder James MD Unavailable [phone] Reason for Visit * Reason Comments Medication Refill Encounter Details Date Type Department Care Team (Late Contact Info) Description [facility]18/[facility] [address] [place] [address] Wilder James MD [address] [place] [address] Medication Refill Social History Tobacco Use Types [...] Info) Description 02/05/2025 10:00 AM CDT [facility] [address] [place] [address] Tabitha Rosenthal APRN, AIRLINE CUSTOMER SERVICE AGENT [address] [place] [address] documented as of this encounter Visit Diagnoses Diagnosis Intractable migraine with aura without status migrainosus Migraine with aura, with intractable migraine, so stated, without mention of status migrainosus documented in this encounter Care Teams Ripsawyer Relationship Specialty Start Date End Date Agustín Crenshaw MD [address] [place] [address] PCP - General Pediatrics 10/17/19 Aura Head APRN, CNM [address] [place] [address] Certified Nurse Balance And Hairspring Assembler 02/15/20 Wilder James MD [address] [place] [address] Consulting Physician Neurology 02/03/23 documented as of this encounter
--- OUTSIDE RECORDS SUMMARY | 2025-01-03 15:24 | XMS_ITS | Clinical Summary ---
Author Organization [facility] Address [address] [facility] [place] [address] Phone Care Team Providers Care Ham Marker Name Role Phone Agustín Crenshaw MD Primary Care Provider Aura Head APRN, CNM Unavailable [phone] Wilder James MD Unavailable [phone] Allergies Active Allergy Reactions Criticality Noted Date Comments Levofloxacin Unknown 10/10/2019 Penicillins Unknown 10/10/2019 Medications levonorgestrel (MIRENA) 20 MCG/24HR IUD by Intrauterine route. Active omeprazole (PriLOSEC) 40 MG CAPSULE DELAYED RELEASE Take by mouth daily. Active Multiple Vitamin (MULTIVITAMIN PO) Take by mouth. Activ e SUMAtriptan (IMITREX) 100 MG Tablet Take 100 mg by mouth daily as needed. Use as directed. May repeat dose in 2 hours if headache recurs. Active losartan (COZAAR) 25 MG Tablet Take by mouth every evening. Active hydroCHLOROthia zide (MICROZIDE) 12.5 MG Capsule Take 12.5 mg by mouth daily. Active Galcanezumab-gn lm (Emgality) 120 MG/ML Solution Auto-injectorIn dications:Intra ctable migraine with aura without status migrainosus Administer 1 ml subcutaneously every 30 days 1 mL 3 10/10/19 25 Active amitriptyline (ELAVIL) 25 MG TabletIndicatio ns:Intractable migraine with aura without status migrainosus Take 1 Tablet by mouth nightly. 90 Tablet 12/30/19 25 Active amitriptyline (ELAVIL) 25 MG TabletIndicatio ns:Intractable migraine with aura without status migrainosus Take 1 Tablet by mouth nightly. 90 Tablet 1 06/30/19 25 025 Discontin ued(Reord er) Active Problems No known active problems Encounters Date Type Department Care Team Description 12/28/[facility] [address] [place] [address] Wilder James MD Medication Refill 10/09/[address] [facility] [address] [place] [address] Wilder James MD from Last 3 Months Family History Medical History Relation Name Comments No Known Problems Brother Chronic Obstructive Pulmonary Disease Father Migraines Mother No Known Problems Sister Relation Name Status Comments Brother Alive Father Alive Mother Alive Sister Alive Social History Tobacco Use Types Packs/Day Years Used Date Smoking Tobacco: Never Smokeless Tobacco: Never Tobacco Cessation:Counseling Given: Not Answered Alcohol Use Standard Drinks/Week Comments Not Currently 0 (1 standard drink = 0.6 oz pur e alcohol) Comments No Sex and Gender Information Value Date Recorded Sex Assigned at Not on file Legal Sex Female 11:08 PM CDT Gender Identity Not on file Sexual Orientation Not on file Last Filed Vital Signs Vital Sign Reading Time Taken Comments Blood Pressure 128/80 04/03/2023 10:08 AM REFRIGERATOR MOVER Pulse 90 04/03/2023 10:08 AM REFRIGERATOR MOVER Temperature 36.5 C (97.7 F) 04/03/2023 10:08 AM REFRIGERATOR MOVER Respiratory Rate 20 04/03/2023 10:08 AM REFRIGERATOR MOVER Oxygen Saturation 98% 04/03/2023 10:08 AM REFRIGERATOR MOVER Inhaled Oxygen Concentration - - Weight 87.1 kg (192 lb) 02/08/2023 10:08 AM CDT Height 172.7 cm (5' 8) 02/08/2023 10:08 AM CDT Body Mass Index 29.19 02/08/2023 10:08 AM CDT Plan of Treatment Upcoming Encounters Date Type Department Care Team (Late st Contact Info) Description 02/05/2025 10:00 AM CDT Telemedicine [facility] - [facility]rology - [place] [address] [facility] [place] [phone] Tabitha Rosenthal APRN, ELEVATOR MECHANIC APPRENTICE [address] [facility] [place] [address] Health Maintenance Due Date Last Done Comments Hepatitis C Virus (HCV) Screening 1969 Mammogram 1969 TdaP Immunization 1969 Hepatitis B Immunization (1 of 3 - 19+ 3-dose series) 1988 Pap Smear 1990 Cervical Cancer Screening (CCS) 12/22/1999 HPV/Cotest 12/22/1999 Cologuard 2014 Immunochemical Fecal Occult Blood 2014 Pneumococcal Immunization (5 0+ years) (1 of 1 - PCV) 12/22/2019 Zoster Immunization (1 of 2) 12/22/2019 Influenza Immunization (#1) 2024 02/11/2018 SARS-COV-2 Immunization (3 - season) 2024 07/16/2020, 06/12/2020 Colonoscopy 08/20/2027 08/19/2022 Colorectal Cancer Screening 08/20/2027 Respiratory Syncytial Virus (RSV) Immunization (Adult) (1 - 1-dose 75+ series) 2044 DTaP/Tdap/Td Immunization Discontinued 06/08/2014 Human Papillomavirus (HPV) Immunization Aged Out No longer eligible based on patient's age to complete this topic Meningococcal Immunization (ACWY) Aged Out No longer eligible based on patient's age to complete this topic Rotavirus Immunization Aged Out No lo nger eligible based on patient's age to complete this topic Insurance [facility] Care Teams Ham Marker Relationship Specialty Start Date End Date Agustín Crenshaw MD [address] [place] [address] PCP - General Pediatrics 10/17/19 Aura Head APRN, CNM [address] [place] [address] Certified Nurse Filter Tank Tender Helper Head 02/15/20 Wilder James MD [address] [place] [address] Consulting Physician Neurology 02/03/23
--- OUTSIDE RECORDS SUMMARY | 2025-01-03 15:24 | XMS_ITS | Encounter Summary ---
Author Organization [facility] Address [address] [place] [address] Phone Care Team Providers Care Sandfill Operator Name Role Phone Agustín Crenshaw MD Primary Care Provider Aura Head APRN, CN Unavailable [phone] Wilder James MD Unavailable [phone] Reason for Visit * Reason Comments Medication Refill Encounter Details Date Type Department Care Team (Late Contact Info) Description 12/15/2021 Refill [facility] Neurology [facility] [address]2 [place] [address] Tabitha Rosenthal, BUSINESS LAWYER, CONTINUOUS PROCESS MACHINE OPERATOR [address] [place] [address] Medication Refill Social History Tobacco Use Types [...] Info) Description 02/05/2025 10:00 AM CDT Telemedicine [facility] Neurology [facility] [address] [place] [address] Tabitha Rosenthal APRN, CONTINUOUS PROCESS MACHINE OPERATOR [address] [place] [address] documented as of this encounter Visit Diagnoses Diagnosis Intractable migraine with aura without status migrainosus Migraine with aura, with intractable migraine, so stated, without mention of status migrainosus documented in this encounter Care Teams Sandfill Operator Relationship Specialty Start Date End Date Agustín Crenshaw MD [address] [place] [address] PCP - General Pediatrics 10/17/19 Aura Head APRN, CNM [address] [place] [address] Certified Nurse Television Announcer 02/15/20 Wilder James MD [address] [place] [address] Consulting Physician Neurology 02/03/23 documented as of this encounter
--- OUTSIDE RECORDS SUMMARY | 2025-01-03 15:24 | XMS_ITS | Encounter Summary ---
Author Organization [facility] Address [address] [place] [address] Phone Care Team Providers Care Head Of Stock Name Role Phone Agustín Crenshaw MD Primary Care Provider [phone] Aura Head APRN, CNM Unavailable [phone] Wilder James MD Unavailable [phone] Reason for Visit * Reason Comments Medication Refill Encounter Details Date Type Department Care Team (Late Contact Info) Description 04/13/2020 [facility] #1 [place] [address] Wilder James MD [address] [place] [address] Medication Refill Social History Tobacco Use Types [...] Info) Description 02/05/2025 10:00 AM CDT [facility]icine [facility] #2 [place] [address] Tabitha Rosenthal APRN, COOKING TEACHER [address] [place] [address] documented as of this encounter Visit Diagnoses Diagnosis Intractable migraine with aura without status migrainosus Migraine with aura, with intractable migraine, so stated, without mention of status migrainosus documented in this encounter Care Teams Head Of Stock Relationship Specialty Start Date End Date Agustín Crenshaw MD [address] [place] [address] PCP - General Pediatrics 10/17/19 Aura Head APRN, CNM [address] [place] [address] Certified Nurse Power Station Operator 02/15/20 Wilder James MD [address] [place] [address] Consulting Physician Neurology 02/03/23 documented as of this encounter
--- OUTSIDE RECORDS SUMMARY | 2025-01-03 15:24 | XMS_ITS | Clinical Summary ---
Author Organization [facility] [place] Address [address] [place] [address] Phone Care Team Providers Care Steam Plant Records Clerk Name Role Phone Unavailable Primary Care Provider Unavailabl e Active Problems No known active problems Social History Tobacco Use Types Packs/Day Years Used Date Smoking Tobacco: Never Assessed Comments Unknown Sex and Gender Information Value Date Recorded Sex Assigned at Not on file Legal Sex Female 4:11 PM GEOLOGICAL SURVEY FIELD ASSISTANT Gender Identity Not on file Sexual Orientation [...] (1 of 2) 12/22/2019 INFLUENZA VACCINE (#1) 2024 Procedures Procedure Name Priority Date/Time Associated Diagnosis [...]
--- OUTSIDE RECORDS SUMMARY | 2025-01-03 15:24 | XMS_ITS | Encounter Summary ---
Author Organization [facility] Address [address] [place] [address] Phone Care Team Providers Care Pharmacy Billing Adjudicator Name Role Phone Agustín Crenshaw MD Primary Care Provider Aura Head APRN, CN Unavailable [phone] Wilder James MD Unavailable [phone] Reason for Visit * Reason Comments Medication Refill Encounter Details Date Type Department Care Team (Late Contact Info) Description 03/24/2021 Refill [facility] Neurology [facility] [address]2 [place] [address] Tabitha Rosenthal, PATENT LAW SPECIALIST, NATIONAL ACCOUNT REPRESENTATIVE [address] [place] [address] Medication Refill Social History Tobacco Use Types [...] Info) Description 02/05/2025 10:00 AM CDT Telemedicine [facility] Neurology [facility] [address] [place] [address] Tabitha Rosenthal APRN, NATIONAL ACCOUNT REPRESENTATIVE [address] [place] [address] documented as of this encounter Visit Diagnoses Diagnosis Intractable migraine with aura without status migrainosus Migraine with aura, with intractable migraine, so stated, without mention of status migrainosus documented in this encounter Care Teams Pharmacy Billing Adjudicator Relationship Specialty Start Date End Date Agustín Crenshaw MD [address] [place] [address] PCP - General Pediatrics 10/17/19 Aura Head APRN, CNM [address] [place] [address] Certified Nurse Medical Claims Representative 02/15/20 Wilder James MD [address] [place] [address] Consulting Physician Neurology 02/03/23 documented as of this encounter
--- OUTSIDE RECORDS SUMMARY | 2025-01-03 15:24 | XMS_ITS | Encounter Summary ---
Author Organization [facility] Address [address] [place] [address] Phone Care Team Providers Care Electrical Maintenance Supervisor Name Role Phone Agustín Crenshaw MD Primary Care Provider Aura Head APRN, CNM Unavailable [phone] Wilder James MD Unavailable [phone] Reason for Visit * Reason Comments Medication Refill Encounter Details Date Type Department Care Team (Late Contact Info) Description [facility] #[address] [place] [address] Wilder James MD [address] [place] [address] Medication Refill Social History Tobacco Use Types [...] Info) Description 02/05/2025 10:00 AM CDT [facility] #[address] [place] [address] Tabitha Rosenthal APRN, INJURY/SAFETY HAZARD ASSESSMENT [address] [place] [address] documented as of this encounter Visit Diagnoses Diagnosis Intractable migraine with aura without status migrainosus Migraine with aura, with intractable migraine, so stated, without mention of status migrainosus documented in this encounter Care Teams Electrical Maintenance Supervisor Relationship Specialty Start Date End Date Agustín Crenshaw MD [address] [place] [address] PCP - General Pediatrics 10/17/19 Aura Head APRN, CNM [address] [place] [address] Certified Nurse Personal Security Specialist 02/15/20 Wilder James MD [address] [place] [address] Consulting Physician Neurology 02/03/23 documented as of this encounter
== END 2025-01-03 14:53 | disposition home or self-care (01) ==
LOC: CHSIMG 14:56
PROVIDERS: PCP Family Medicine; Visit Provider Family Medicine
DX: M25.512 Pain in left shoulder (principal); M54.2 Cervicalgia
CPT/HCPCS: 72050; 73030

== ENCOUNTER 2025-01-17 13:16 | Outpatient (CLI) | payer BC, SELFPAY ==
--- NOTE | ~2025-01-17 | MM_ITS ---
EXAMINATION: MM screening edgardo BI w renetta HISTORY: Screening TECHNIQUE: Craniocaudal and mediolateral oblique 3-D tomosynthesis images were obtained and synthetic 2-D images were generated. CAD analysis was submitted and interpreted. COMPARISON: 09/10/2021 BREAST PARENCHYMAL COMPOSITION: The breasts are extremely dense, which lowers the sensitivity of mammography. FINDINGS: There is no evidence of suspicious mass, calcification, or architectural distortion to suggest malignancy. There has been no suspicious interval change. IMPRESSION: 1. No mammographic evidence of malignancy. Recommend routine screening mammography in one year. BI-RADS Category 2: Benign finding(s) Reviewed, dictated and finalized at location Q. IMPRESSION: 1. No mammographic evidence of malignancy. Recommend routine screening mammogra phy in one year. BI-RADS Category 2: Benign finding(s)
--- NOTE | ~2025-01-17 | US_ITS ---
Clinical History: other specified symptoms and signs invol Examination: US carotid duplex BI Comparison: None Technique: Grayscale, color, duplex/spectral Doppler sonography carotid and vertebral arteries. Distal CCA and Peak ICA systolic velocities provided. Society of Radiologists in Ultrasound (SRU) consensus criteria utilized, indirectly assessing stenosis by velocities. Findings: No plaque noted Right side: CCA - 108 cm/sec. ICA - 72 cm/sec. ICA/CCA - 0.7 Left Side: CCA - 106 cm/sec. ICA - 73 cm/sec. ICA/CCA - 0.7 Normal antegrade flow measured bilateral vertebral arteries. IMPRESSION: 1. No hemodynamically significant ICA stenosis (i.e., if any stenosis, less than 50%). 2. Normal bilateral antegrade vertebral artery flow. Stenosis measured by Society of Radiologists in Ultrasound (SRU) criteria. Reviewed, dictated and finalized at location R. IMPRESSION: 1. No hemodynamically significant ICA stenosis (i.e., if any stenosis, less th an 50%). 2. Normal bilateral antegrade vertebral artery flow. Stenosis measured by Society of Radiologists in Ultrasound (SRU) criteria.
--- OUTSIDE RECORDS SUMMARY | 2025-01-17 13:25 | XMS_ITS | Clinical Summary ---
Author Organization [facility] Address [address] [facility] [place] [address] Phone Care Team Providers Care Credit Control Manager Name Role Phone Agustín Crenshaw MD Primary Care Provider [phone] Aura Head APRN, CNM Unavailable [phone] Wilder James MD Unavailable [phone] Allergies Active Allergy Reactions Criticality Noted Date [...] Type Department Care Team Description [facility] #2 [place] [address] Wilder James MD Medication Refill from Last 3 Months Family History Medical [...] Comments Blood Pressure 128/80 04/03/2023 10:08 AM FAMILY PSYCHOLOGIST Pulse 90 04/03/2023 10:08 AM FAMILY PSYCHOLOGIST Temperature 36.5 C (97.7 F) 04/03/2023 10:08 AM FAMILY PSYCHOLOGIST Respiratory Rate 20 04/03/2023 10:08 AM FAMILY PSYCHOLOGIST Oxygen Saturation 98% 04/03/2023 10:08 AM FAMILY PSYCHOLOGIST Inhaled Oxygen Concentration - - Weight 87.1 kg (192 lb) 02/08/2023 10:08 AM CDT Height 172.7 cm (5' 8) 02/08/2023 10:08 AM CDT Body Mass Index 29.19 02/08/2023 10:08 AM CDT Plan of Treatment Upcoming Encounters Date Type Department Care Team (Late st Contact Info) Description 02/05/2025 10:00 AM CDT [facility] [address] [place] [address] Tabitha Rosenthal, NUTRITION TEACHER, SENIOR CONSULTANT [address] [place] [address] Health Maintenance Due Date Last Done Comments [...] patient's age to complete this topic Insurance [place] [address] Care Teams Credit Control Manager Relationship Specialty Start Date End Date Agustín Crenshaw MD [address] [place] [address] PCP - General Pediatrics 10/17/19 Aura Head, RAVEN, CNM [address] [place] [address] Certified Nurse Aeronautical Engineering Technologist 02/15/20 Wilder James MD [address] [place] [address] Consulting Physician Neurology 02/03/23
--- OUTSIDE RECORDS SUMMARY | 2025-01-17 13:25 | XMS_ITS | Encounter Summary ---
Author Organization [facility] Address [address] [place] [address] Phone Care Team Providers Care Shift Nurse Manager Name Role Phone Agustín Crenshaw MD Primary Care Provider [phone] Aura Head APRN, CNM Unavailable [phone] Wilder James MD Unavailable [phone] Reason for Visit * Reason Comments Medication Refill Encounter Details Date Type Department Care Team (Late Contact Info) Description [facility] #1 [place] [address] Wilder James MD [address] [place] [address] Medication Refill Social History Tobacco Use Types [...] 02/05/2025 10:00 AM CDT Telemedicine [facility] #2 [place] [address] Tabitha Rosenthal APRN, STATION CHIEF [address] [place] [address] documented as of this encounter Visit Diagnoses Diagnosis Intractable migraine with aura without status migrainosus Migraine with aura, with intractable migraine, so stated, without mention of status migrainosus documented in this encounter Care Teams Shift Nurse Manager Relationship Specialty Start Date End Date Agustín Crenshaw MD [address] [place] [address] PCP - General Pediatrics 10/17/19 Aura Head APRN, CNM [address] [place] [address] Certified Nurse Paradichlorobenzene Machine Operator 02/15/20 Wilder James MD [address] [place] [address] Consulting Physician Neurology 02/03/23 documented as of this encounter
--- OUTSIDE RECORDS SUMMARY | 2025-01-17 13:25 | XMS_ITS | Encounter Summary ---
Author Organization [facility] Address [address] [place] [address] Phone Care Team Providers Care Logistical Engineer Name Role Phone Agustín Crenshaw MD Primary Care Provider [phone] Aura Head APRN, CNM Unavailable [phone] Wilder James MD Unavailable [phone] Reason for Visit * Reason Comments Medication Refill Encounter Details Date Type Department Care Team (Late Contact Info) Description [facility]/13/[facility] [address] [place] [address] Wilder James MD [address] [place] [address] Medication Refill Social History Tobacco Use Types [...] Info) Description 02/05/2025 10:00 AM CDT [facility] [address]2 [place] [address] Tabitha Rosenthal APRN, PEST CONTROL SERVICE TECHNICIAN [address] [place] [address] documented as of this encounter Visit Diagnoses Diagnosis Intractable migraine with aura without status migrainosus Migraine with aura, with intractable migraine, so stated, without mention of status migrainosus documented in this encounter Care Teams Logistical Engineer Relationship Specialty Start Date End Date Agustín Crenshaw MD [address] [place] [address] PCP - General Pediatrics 10/17/19 Aura Head APRN, CNM [address] [place] [address] Certified Nurse Door To Door Fundraising Collector 02/15/20 Wilder James MD [address] [place] [address] Consulting Physician Neurology 02/03/23 documented as of this encounter
--- OUTSIDE RECORDS SUMMARY | 2025-01-17 13:25 | XMS_ITS | Clinical Summary ---
Author Organization [facility] [place] Address [address] [place] [address] Phone Care Team Providers Care Electric Organ Checker Name Role Phone Unavailable Primary Care Provider Unavailabl e Active Problems No known active problems Social History Tobacco Use Types Packs/Day Years Used Date Smoking Tobacco: Never Assessed Comments Unknown Sex and Gender Information Value Date Recorded Sex Assigned at Not on file Legal Sex Female 4:11 PM SOIL SURVEYOR Gender Identity Not on file Sexual Orientation [...]
--- OUTSIDE RECORDS SUMMARY | 2025-01-17 13:25 | XMS_ITS | Encounter Summary ---
Author Organization [facility] Address [address] [place] [address] Phone Care Team Providers Care Infrastructure Design Engineer Name Role Phone Agustín Crenshaw MD Primary Care Provider [phone] Aura Head APRN, CNM Unavailable [phone] Wilder James MD Unavailable [phone] Reason for Visit * Reason Comments Medication Refill Encounter Details Date Type Department Care Team (Late Contact Info) Description [facility] #[address] [place] [address] Wilder James MD [address] [place] [address] Medication Refill Social History Tobacco Use Types [...] Info) Description 02/05/2025 10:00 AM CDT [facility] #2 [place] [address] Tabitha Rosenthal APRN, PROCESS CONTROL OPERATOR [address] [place] [address] documented as of this encounter Visit Diagnoses Diagnosis Intractable migraine with aura without status migrainosus Migraine with aura, with intractable migraine, so stated, without mention of status migrainosus documented in this encounter Care Teams Infrastructure Design Engineer Relationship Specialty Start Date End Date Agustín Crenshaw MD [address] [place] [address] PCP - General Pediatrics 10/17/19 Aura Head APRN, CNM [address] [place] [address] Certified Nurse C++ Quant Developer 02/15/20 Wilder James MD [address] [place] [address] Consulting Physician Neurology 02/03/23 documented as of this encounter
--- OUTSIDE RECORDS SUMMARY | 2025-01-17 13:25 | XMS_ITS | Encounter Summary ---
Author Organization [facility] Address [address] [place] [address] Phone Care Team Providers Care Kindergartner Name Role Phone Agustín Crenshaw MD Primary Care Provider [phone] Aura Head APRN, CN Unavailable [phone] Wilder James MD Unavailable [phone] Reason for Visit * Reason Comments Medication Refill Encounter Details Date Type Department Care Team (Late Contact Info) Description 12/17/2020 Refill [facility] Neu[facility] #2 [place] [address] Tabitha Rosenthal, REJECT OPENER AND FILLER, SECOND SHIFT SUPERVISOR [address] [place] [address] Medication Refill Social History Tobacco Use Types [...] Info) Description 02/05/2025 10:00 AM CDT Telemedicine [facility] Neu[facility] [address] [place] [address] Tabitha Rosenthal APRN, SECOND SHIFT SUPERVISOR [address] [place] [address] documented as of this encounter Visit Diagnoses Diagnosis Intractable migraine with aura without status migrainosus Migraine with aura, with intractable migraine, so stated, without mention of status migrainosus documented in this encounter Care Teams Kindergartner Relationship Specialty Start Date End Date Agustín Crenshaw MD [address] [place] [address] PCP - General Pediatrics 10/17/19 Aura Head APRN, CNM [address] [place] [address] Certified Nurse Air Surveillance Operator 02/15/20 Wilder James MD [address] [place] [address] Consulting Physician Neurology 02/03/23 documented as of this encounter
--- OUTSIDE RECORDS SUMMARY | 2025-01-17 13:25 | XMS_ITS | Encounter Summary ---
Author Organization [facility] Address [address] [place] [address] Phone Care Team Providers Care Credit Adjuster Name Role Phone Agustín Crenshaw MD Primary Care Provider Aura Head APRN, CN Unavailable [phone] Wilder James MD Unavailable [phone] Reason for Visit * Reason Comments Medication Refill Encounter Details Date Type Department Care Team (Late Contact Info) Description 03/24/[address] [facility] Neurology [facility] [address]2 [place] [address] Tabitha Rosenthal, HOST/HOSTESS, FURNACE PROCESS SUPERVISOR [address] [place] [address] Medication Refill Social History Tobacco Use Types [...] Info) Description 02/05/2025 10:[address] [facility] Neurology [facility] [address] [place] [address] Tabitha Rosenthal APRN, FURNACE PROCESS SUPERVISOR [address] [place] [address] documented as of this encounter Visit Diagnoses Diagnosis Intractable migraine with aura without status migrainosus Migraine with aura, with intractable migraine, so stated, without mention of status migrainosus documented in this encounter Care Teams Credit Adjuster Relationship Specialty Start Date End Date Agustín Crenshaw MD [address] [place] [address] PCP - General Pediatrics 10/17/19 Aura Head APRN, CNM [address] [place] [address] Certified Nurse Title Supervisor 02/15/20 Wilder James MD [address] [place] [address] Consulting Physician Neurology 02/03/23 documented as of this encounter
--- OUTSIDE RECORDS SUMMARY | 2025-01-17 13:25 | XMS_ITS | Encounter Summary ---
Author Organization [facility] Address [address] [place] [address] Phone Care Team Providers Care Bi Report Developer Name Role Phone Agustín Crenshaw MD Primary Care Provider Aura Head APRN, CN Unavailable [phone] Wilder James MD Unavailable [phone] Reason for Visit * Reason Comments Medication Refill Encounter Details Date Type Department Care Team (Late Contact Info) Description 08/15/2021 Refill [facility] Neurology [facility] [place] [address] Tabitha Rosenthal, DRAG SEINER, BOLT LOADER [address] [place] [address] Medication Refill Social History Tobacco Use Types [...] Info) Description 02/05/2025 10:00 AM CDT Telemedicine [facility] Neurology [facility] [place] [address] Tabitha Rosenthal APRN, BOLT LOADER [address] [place] [address] documented as of this encounter Visit Diagnoses Diagnosis Intractable migraine with aura without status migrainosus Migraine with aura, with intractable migraine, so stated, without mention of status migrainosus documented in this encounter Care Teams Bi Report Developer Relationship Specialty Start Date End Date Agustín Crenshaw MD [address] [place] [address] PCP - General Pediatrics 10/17/19 Aura Head APRN, CNM [address] [place] [address] Certified Nurse Public Administration Professor 02/15/20 Wilder James MD [address] [place] [address] Consulting Physician Neurology 02/03/23 documented as of this encounter
--- OUTSIDE RECORDS SUMMARY | 2025-01-17 13:25 | XMS_ITS | Encounter Summary ---
Author Organization [facility] Address [address] [place] [address] Phone Care Team Providers Care Safety Investigator/Cause Analyst Name Role Phone Agustín Crenshaw MD Primary Care Provider Aura Head APRN, CN Unavailable [phone] Wilder James MD Unavailable [phone] Reason for Visit * Reason Comments Medication Refill Encounter Details Date Type Department Care Team (Late Contact Info) Description 12/15/[facility]21 [facility] [address]2 [place] [address] Tabitha Rosenthal, SPINNING MULE OPERATOR, THEATRICAL VARIETY AGENT [address] [place] [address] Medication Refill Social History Tobacco Use Types [...] Info) Description 02/05/2025 10:00 AM CDT Telemedicine [facility] Neu[facility] [address] [place] [address] Tabitha Rosenthal APRN, THEATRICAL VARIETY AGENT [address] [place] [address] documented as of this encounter Visit Diagnoses Diagnosis Intractable migraine with aura without status migrainosus Migraine with aura, with intractable migraine, so stated, without mention of status migrainosus documented in this encounter Care Teams Safety Investigator/Cause Analyst Relationship Specialty Start Date End Date Agustín Crenshaw MD [address] [place] [address] PCP - General Pediatrics 10/17/19 Aura Head APRN, CNM [address] [place] [address] Certified Nurse Lead Setter 02/15/20 Wilder James MD [address] [place] [address] Consulting Physician Neurology 02/03/23 documented as of this encounter
== END 2025-01-17 13:17 | disposition home or self-care (01) ==
LOC: CHSIMG 13:18
PROVIDERS: PCP Family Medicine; Visit Provider Family Medicine
DX: I77.3 Arterial fibromuscular dysplasia (principal); R09.89 Other specified symptoms and signs involving the circulatory and respiratory systems
CPT/HCPCS: 77063; 77067; 93880